=== PATIENT | male | born 1975 | race Caucasian/White ===

== ENCOUNTER 2025-07-16 14:26 | Emergency (ER) | payer OTHER ==
[2025-07-16 15:09] LABS: #Basophils Less than 0.03 10x3/uL (0.0-0.2); #Eosinophils Less than 0.03 10x3/uL (0.0-0.5); #Monocytes 0.87 10x3/uL (0.0-1.1); #Neutrophils 11.70 10x3/uL (1.5-8.4); %Basophils 0.1 % (0.0-2.0); %Eosinophils 0.1 % (0.0-6.0); %Lymphocytes 2.8 % (18.0-47.0); %Monocytes 6.7 % (0.0-10.0); %Neutrophils 89.9 % (40.0-75.0); Hematocrit 46.2 % (38.8-50.0); Hemoglobin 14.8 g/dL (13.5-17.5); Mean Corpuscular Hemoglobin 27.2 pg (27.0-33.0); Mean Corpuscular Volume 84.9 fL (81.2-95.1); Platelet Count 403 10x3/uL (150-450); Red Blood Cell (RBC) Count 5.44 10x6/uL (4.32-5.72); White Blood Cell (WBC) Count 13.00 10x3/uL (3.5-10.5)
[2025-07-16 15:43] LABS: ALT (SGPT) 10 U/L (Less than 45); AST (SGOT) 26 U/L (11-34); Albumin 3.2 g/dL (3.1-4.5); Alkaline Phosphatase 162 U/L (40-110); Anion Gap 17 mmol/L (10-20); BUN (Urea Nitrogen) 29 mg/dL (8.4-25.7); Bilirubin, Total 0.6 mg/dL (0.3-1.2); Calc. Creatinine Clearance 0 mL/min (70-130); Carbon Dioxide 25 mmol/L (22-29); Chloride 104 mmol/L (98-107); Globulin 4.0 g/dL (2.4-3.5); Glucose 96 mg/dL (70-105); Potassium 4.1 mmol/L (3.5-5.1); Sodium 142 mmol/L (136-145)
[2025-07-16 15:58] LABS: Troponin I 0.018 ng/mL (< 0.028)
[2025-07-16 16:03] LABS: Calcium 13.7 mg/dL (7.8-10.44)
[2025-07-16] MEDS ORDERED: cefTRIAXone (ROCEPHIN) 1 GM VIAL ONE (16:20)
[2025-07-16] MEDS ORDERED: Azithromycin 500 MG VIAL ONE (16:21)
[2025-07-16] MEDS ORDERED: Albuterol 2.5 MG (3 mL) NEB ONE ×2 (17:06→20:47)
[2025-07-16] MEDS ORDERED: Acetylcysteine 20% 200 MG/ML 30 ML VIAL ONE (20:59)
== END 2025-07-16 17:54 ==
LOC: EEVIPCON 14:26 → CSHERS 14:26
DX: J18.9 Pneumonia, unspecified organism (principal); E86.0 Dehydration; E87.20 Acidosis, unspecified; R09.02 Hypoxemia; Z99.81 Dependence on supplemental oxygen
CPT/HCPCS: 36415; 71045; 80053; 83605; 83880; 84484; 85025; 87040; 87428; 93005; 94640; 94644; 94645; 94760; 96374; 96375; J0132; J0456; J0696; J7611